=== PATIENT | female | born 1940 | race Caucasian/White ===

== ENCOUNTER 2023-08-25 16:12 | Emergency (ER) | payer MEDICARE, SELFPAY ==
[2023-08-25 16:18] VITALS: BP 178/98; PULSE 98; RESP 16; TEMP 36.7; O2SAT 92; BMI 23.3
--- NOTE | 2023-08-25 16:27 | PC.NURSE ---
pt states around 1530 she was eating some apple slices and one got stuck in her throat. she is not having any trouble breathing at this time, denies any resp distress. states she tried to make herself vomit but it didn't work.
--- NOTE | 2023-08-25 16:42 | XR_ITS ---
The [address] [address] Patient Name: LAURYN CAMEJO MRN: [id number] date: 1940 Sex: F Assigned Patient Location: ED.MAIN Current Patient Location: ER Accession/Order Number: [id number] Exam Date: 08/25/2023 16:35 Report Date: 08/25/2023 17:25 At the request of: DEMETRIO CR Procedure: XR soft tissue neck EXAM: XR soft tissue neck HISTORY: foreign body COMPARISON: None. TECHNIQUE: 2 views of soft tissue neck FINDINGS: The airway is patent. No definite radiographic foreign body is noted. Retropharyngeal space is normal. Severe degenerative changes of the cervical spine is appreciated. The soft tissue is unremarkable. XR/XR soft tissue neck IMPRESSION: No definite radiographic evidence of foreign body. Electronically authenticated by: DEEPIKA KHALIL Date: 08/25/2023 17:25
--- NOTE | 2023-08-25 16:42 | XR_ITS ---
The [place] [id number] Patient Name: LAURYN CAMEJO MRN: [id number] date: 1940 Sex: F Assigned Patient Location: ER Current Patient Location: ER Accession/Order Number: [id number] Exam Date: 08/25/2023 16:35 Report Date: 08/25/2023 17:28 At the request of: DEMETRIO CR Procedure: XR chest 2V EXAM: XR chest 2V HISTORY: foreign body COMPARISON: None. TECHNIQUE: Chest X-ray AP, 1 view FINDINGS: Support devices: None. Lungs/pleura: No effusion, or pneumothorax. Left lower lobe hazy opacity, likely representing atelectasis and/or consolidation. Heart and mediastinum: Normal contours. Bones: No acute abnormality identified. XR/XR chest 2V Impression: Left lower lobe hazy opacity, likely representing atelectasis and/or consolidation. Electronically authenticated by: DEEPIKA KHALIL Date: 08/25/2023 17:28
[2023-08-25 17:13] VITALS: O2SAT 95
--- NOTE | 2023-08-25 17:44 | ED_ITS ---
HPI - General Adult General Chief complaint: Neck Pain/Injury Stated complaint: APPLE IN THROAT Time Seen by Provider: 08/25/23 16:24 Source: patient Mode of arrival: walk-in Limitations: no limitations History of Present Illness HPI narrative: 83-year-old female presents to the emergency department with concern about esophageal foreign body. States she was eating an apple this afternoon when she felt like it became stuck in her throat. Complains of increased pain with swallowing. States she was drooling at first, it is no longer. Denies any shortness of breath, cough, fever. Quality: As above Severity: Mild Timing: As above, constant Context: Normal setting and activity Modifying factors: Pain worse with swallowing Associated symptoms: As above Related Data Home Medications Medication Instructions Recorded Confirmed No Known Home Medications 08/25/23 08/25/23 Allergies Allergy/AdvReac Type Severity Reaction Status Date / Time No Known Drug Allergies Allergy Verified 08/25/23 16:17 Review of Systems ROS Narrative Constitutional: Denies fever, chills, fatigue HENT: + difficulty, painful swallowing. Denies congestion, ear pain, rhinorrhea, sneezing, voice change Eyes: Denies discharge, eye redness Respiratory: Denies cough, shortness of breath Cardiovascular: Denies chest pain, palpitations PFSH PFSH Social History Smoking status: Never smoker Exam Narrative Exam Narrative: Vital signs noted Nurses notes reviewed CONST:? Nontoxic, well appearing, well nourished, in no distress.? HENT: normocephalic, atraumatic.? No nasal discharge.? Moist mucous membranes, no increased oropharyngeal erythema, edema, exudate.? No trismus, maintaining own secretions. EYES: No injection NECK: supple CV: normal rate, regular rhythm, no murmur RESP: normal effort, speaking in complete sentences. Lung sounds clear and equal bilat.? No wheezes, rales, rhonchi, stridor NEURO: A&Ox3 SKIN: intact, warm, dry, no pallor PSYCHIATRIC: normal mood, affect Constitutional Vital Signs, click to edit/add: Last Vital Signs Temp 98.0 F 08/25/23 16:18 Pulse 98 H 08/25/23 16:18 Resp 16 08/25/23 16:18 BP 178/98 H 08/25/23 16:18 Pulse Ox 95 08/25/23 17:13 O2 Del Method Room Air 08/25/23 16:18 Course Reevaluation(s) Reevaluation #1: On reevaluation, patient states that she is asymptomatic. Discussed with patient results, plan, and disposition. She is agreeable with plan Time: 17:44 Vital Signs Vital signs: Vital Signs Temperature 98.0 F 08/25/23 16:18 Pulse Rate 98 H 08/25/23 16:18 Respiratory Rate 16 08/25/23 16:18 Blood Pressure 178/98 H 08/25/23 16:18 Pulse Oximetry 92 L 08/25/23 16:18 Oxygen Delivery Method Room Air 08/25/23 16:18 Temperature 98.0 F 08/25/23 16:18 Pulse Rate 98 H 08/25/23 16:18 Respiratory Rate 16 08/25/23 16:18 Blood Pressure 178/98 H 08/25/23 16:18 Pulse Oximetry 95 08/25/23 17:13 Oxygen Delivery Method Room Air 08/25/23 16:18 Medical Decision Making MDM Narrative Medical decision making narrative: This is a pleasant 83-year-old female who presents to the emergency department with complaint of esophageal foreign body. States she was eating an apple when she felt like it became stuck. Has been having discomfort with swallowing since. Did have drooling initially, but this is since resolved. Denies cough, shortness of breath. On arrival, afebrile, vital signs are stable. On exam, nontoxic, well-appearing patient in no apparent distress. Patient speaking in complete sentences. Posterior oropharynx is clear. Heart regular rate and rhythm. Lung sounds clear and equal bilaterally, no stridor, wheezing noted. Patient was given some water prior to x-ray. While drinking it, she felt like the foreign body relieved itself and pain was resolved. Chest x-ray imaging, per radiologist reveals left lower lobe consolidation. Patient states she has had history of COVID-pneumonia in the past. However, no recent fever, cough, shortness of breath. Patient remained stable during ED course. Disposition ? The patient was discharged. Plan: Patient will be discharged to home. Condition at time of disposition: stable and improveed ? Advised to follow up with her provider. Advised to return for any worsening and/or development of new, concerning signs or symptoms PLEASE NOTE: Portions of the medical record may have been produced using electronic derrick boat runner and may contain errors with respect to translation of words which may not have been identified prior to finalization of the chart. Imaging Data Chest x-ray: Radiologist's impression: ITS Impressions Chest X-Ray 08/25/23 16:42 Impression: Left lower lobe hazy opacity, likely representing atelectasis and/or consolidation. Electronically authenticated by: DEEPIKA KHALIL Date: 08/25/2023 17:28 Soft Tissue Neck X-Ray 08/25/23 16:42 IMPRESSION: No definite radiographic evidence of foreign body. Electronically authenticated by: DEEPIKA KHALIL Date: 08/25/2023 17:25 Discharge Plan Discharge Chief Complaint: Neck Pain/Injury Clinical Impression: Pain in throat Esophageal foreign body Qualifiers: Encounter type: initial encounter Qualified Code(s): T18.108A - Unspecified foreign body in esophagus causing other injury, initial encounter Patient Disposition: Home, Self-Care Time of Disposition Decision: 17:46 Condition: Good Mode of Transportation: Private Vehicle Prescriptions / Home Meds: No Action No Known Home Medications Instructions: Esophageal Foreign Body (ED) Stand Alone Forms: Portal Instructions Referrals: MATTHEW MARLOW [Primary Care Provider] - 1 week
[2023-08-25 18:09] VITALS: BP 156/87; PULSE 75; O2SAT 99
== END 2023-08-25 18:10 | disposition home or self-care (01) ==
PROVIDERS: Emergency Provider Emergency Medicine; PCP Internal Medicine
DX: R07.0 Pain in throat (principal); T18.128A Food in esophagus causing other injury, initial encounter
CPT/HCPCS: 70360; 71046; 99284

== ENCOUNTER 2025-04-12 20:22 | Emergency (ER) | payer MEDICARE, SELFPAY ==
--- OUTSIDE RECORDS SUMMARY | 2025-04-04 09:30 | XMS_ITS | Encounter Summary ---
Author Organization [facility] tem Address [id number] [address] [place] [address] Care Team Providers Care Motor Driver Name Role Phone Krish Prince MD Primary Care Provider [phone] Reason for Visit * Reason Comments Medicare Annual Wellness Encounter Details Date Type Department Care Team (Late st Contact Info) Description 04/04/2025 9:30 AM EDT [facility] [address] [place] [address] [address] [place] [address] Krish Prince MD [address] [place] [address], [address] [place], [place] [id number] Routine general medical examination at a health care facility (Primary Dx) Social History Tobacco Use Types Packs/Day Years Used Date Smoking Tobacco: Never Smokeless Tobacco: Never Alcohol Use Standard Drinks/Week Comments Yes 0 (1 standard drink = 0.6 oz pur e alcohol) occassional Social Connection and Isolat ion Panel [NHANES] Answer Date Recorded In a typical week, how many times do you talk on the phone with family, friends, or neighbors? More than three times a week 04/26/2021 Frequency of Social Gatherin gs with Friends and Family Not on file 04/26/2021 How often do you attend chur ch or jain services? More than 4 times per year 04/26/2021 Do you belong to any clubs o r organizations such as mu-ism groups, unions, fraternal or athletic groups, or school groups? No 04/26/2021 How often do you attend meet ings of the clubs or organizations you belong to? Never 04/26/2021 Are you , , di vorced, , never , or living with a partner? 04/26/2021 AUDIT-C Answer Date Recorded Q1: How often do you have a drink containing alc ohol? Never 04/26/2021 Average Number of Drinks Not on file 021 Q3: How often do you have si x or more drinks on one occasion? Never 04/26/2021 PHQ-2 Answer Date Recorded Total Score 3 04/04/2025 [facility] - Occupational Stress Questionnaire Answer Date Recorded Do you feel stress - tense, restless, nervous, or anxious, or unable to sleep at night because your mind is troubled all the time - these days? To some extent 04/26/2021 Exercise Vital Sign Answer Date Recorde d On average, how many days pe r week do you engage in moderate to strenuous exercise (like a brisk walk)? 0 days 04/26/2021 On average, how many minutes do you engage in exercise at this level? 0 min 04/26/2021 PRAPARE - Transportation Answer Date Re corded In the past 12 months, has l ack of transportation kept you from medical appointments or from getting medications? No 03/31 In the past 12 months, has l ack of transportation kept you from meetings, work, or from getting things needed for daily living? No 04/26/2021 Childcare Answer Date Recorded Do problems getting child ca re make it difficult for you to work or study? No 04/26/2021 Employment Answer Date Recorded Do you need help finding a l ocal career center and/or a training program? No 04/26/2021 Hunger Screening Answer Date Recorded Within the past 12 months we worried whether our food would run out before we got money to buy more. Never True 04/04/2025 Within the past 12 months th e food we bought just didn't last and we didn't have money to get more. Never True 04/04/2025 Purpose - Life Answer Date Recorded I have a purpose and direction in my life. Agree 04/26/2021 Education Answer Date Recorded What is the highest level of school you have completed or the highest degree you have received? 12th grade 04/26/2021 Comments No Sex and Gender Information Value Date Recorded Sex Assigned at Not on file Legal Sex Female 11:34 AM EDT Gender Identity Not on file Sexual Orientation Not on file documented as of this encounter Last Filed Vital Signs Vital Sign Reading Time Taken Comments Blood Pressure 142/80 04/04/2025 9:34 AM EDT Pulse 76 04/04/2025 9:34 AM EDT Temperature 36.6 C (97.8 F) 04/04/2025 9:34 AM EDT Respiratory Rate - - Oxygen Saturation - - Inhaled Oxygen Concentration - - Weight 69.7 kg (153 lb 9.6 oz) 04/04/2025 9:34 A M EDT Height 153.7 cm (5' 0.51 ) 04/04/2025 9:34 AM ED T Body Mass Index 29.49 04/04/2025 9:34 AM EDT documented in this encounter Progress Notes * Krish Prince MD - 04/04/2025 9:30 AM EDT Subjective SUBJECTIVE: Patient ID: Lizette Juárez is a 84 y.o. female who presents for a Medicare Annual Wellness exam. Comes in for wellness. Remains independent in her home. She has no concerns. States that she feels well. The following portions of the patient's history were reviewed and updated as appropriate: allergies, current medications, past family history, past medical history, past social history, past surgicalhistory and problem list. AWV FLOWSHEET : Lifestyle Assessment Do you smoke or use smokeless tobacco?: No If you smoke or use smokeless tobacco, are you ready to quit?: NA Are you exposed to secondhand smoke?: No On average, how many drinks of alcohol do you consume in a week?: None Do you exercise for 30 or more minutes on average at least 3 days a week?: Often Do you have any tooth, denture, or oral problems?: No Do you snore or has anyone told you that you snore?: No Do you try to eat a balanced diet?: Yes Do you experience leakage of urine, also known as urinary incontinence?: Never Do you have difficulty bathing?: No Do you have difficulty dressing?: No Do you have difficulty grooming?: No Do you have difficulty eating?: No Do you have difficulty getting out of a chair?: No Do you have difficulty walking?: No Do you have difficulty using the toilet?: No Do you have difficulty doing laundry?: No Do you have difficulty with housekeeping?: No Do you have difficulty preparing a meal?: No Do you have difficulty shopping?: No Do you have difficulty using transportation?: No Do you have difficulty paying bills?: No Do you have difficulty managing finances?: No Fall Risk Fall Risk Assessment Completed?: Yes Have you fallen in the past year?: No Are you worried about falling?: (!) Yes Do you feel unsteady when standing or walking?: (!) Yes Risk Stratification: Moderate Risk Depression Screening Little interest or pleasure in doing things: Not at all Feeling down, depressed, or hopeless: Not at all Trouble falling or staying asleep, or sleeping too much: (!) More than half the days Feeling tired or having little energy: (!) Several days Poor appetite or overeating: Not at all Feeling bad about yourself - or that you are a failure or have let yourself or your family down: Not at all Trouble concentrating on things, such as reading the newspaper or watching television: Not at all Moving or speaking so slowly that other people could have noticed. Or the opposite - being so fidgety or restless that you have been moving around a lot more than usual: Not at all Thoughts that you would be better off , or of hurting yourself in some way: Not at all PEG Scale What number best describes your pain on average in the past week?: 1 What number best describes how, during the past week, pain has interfered with your enjoyment of life?: 0 - Does not interfere What number best describes how, during the past week, pain has interfered with your general activity?: 1 PEG Pain Total Score: 0.67 Safety Assessment Do you have throw rugs on the floor?: No Do you feel safe at your home?: Yes Do you feel unsteady when walking?: (!) Yes Are you having difficulty with driving?: No Do you have trouble seeing?: No Do you use a bath bar/seat?: No Do you use a raised toilet seat?: No Do you use a cane?: No Do you use a walker?: No Do you use a wheelchair?: No Hearing Assessment Do you strain or struggle to hear/understand conversations?: No Do you have trouble hearing the television or radio when others do not?: (!) Yes Does your family ever voice concerns about your hearing?: No Do you wear hearing aid/s?: No Personal Health During the past 4 weeks, how would you rate your overall health?: Good Do you understand how to take all of your medications?: Yes How confident are you that you can control and manage most of your health problems?: (!) I do not have any health problems In the past 12 months, how many times have you been hospitalized?: None End of Life Planning Do you have a living will?: Yes Do you have a durable power of ip attorney?: Yes Cognitive Screening Do you have trouble remembering or recalling facts or events?: No Do family members or caregivers report that you have difficulty remembering things?: No Clock Drawing Test: Normal REVIEW OF SYSTEMS: Review of Systems Constitutional: Negative for activity change and unexpected weight change. HENT: Negative for trouble swallowing and voice change. She isn't hearing very well but it does not really disrupt her daily function. Eyes: Negative for visual disturbance. Respiratory: Negative for cough and shortness of breath. Cardiovascular: Negative for chest pain and leg swelling. Gastrointestinal: Negative for abdominal pain and blood in stool. Genitourinary: Negative for dysuria and hematuria. Musculoskeletal: Some age-related aches and pains Neurological: Negative for dizziness, light-headedness and headaches. Psychiatric/Behavioral: Sometimes she does not sleep well at night because she has trouble shutting off her mind. Objective PHYSICAL EXAMINATION: Vitals: 04/04/25 0934 BP: 142/80 BP Site: Left Arm BP Postition: Sitting Pulse: 76 Temp: 36.6 ??C (97.8 ??F) TempSrc: Temporal Weight: 69.7 kg (153 lb 9.6 oz) Height: 153.7 cm (5' 0.51 ) Physical Exam Constitutional: Appearance: Normal appearance. Comments: Blood pressure acceptable HENT: Left Ear: Tympanic membrane and ear canal normal. Ears: Comments: Right ear is partially occluded with wax Nose: No congestion. Mouth/Throat: Pharynx: Oropharynx is clear. Eyes: General: No scleral icterus. Pupils: Pupils are equal, round, and reactive to light. Neck: Vascular: No carotid bruit. Comments: No thyroid enlargement or neck mass Cardiovascular: Rate and Rhythm: Normal rate and regular rhythm. Heart sounds: No murmur heard. Pulmonary: Effort: Pulmonary effort is normal. Breath sounds: Normal breath sounds. Abdominal: General: There is no distension. Palpations: Abdomen is soft. Tenderness: There is no abdominal tenderness. Musculoskeletal: Right lower leg: No edema. Left lower leg: No edema. Skin: Comments: No suspicious skin lesions Neurological: General: No focal deficit present. Mental Status: She is alert. Assessment/Plan ASSESSMENT/PLAN Medication reviewed. Labs from earlier this year reviewed. She declines mammogram and flu shot. Routine follow-up annually for wellness. Diagnoses and all orders for this visit: Routine general medical examination at a health care facility documented in this encounter Plan of Treatment Upcoming Encounters Date Type Department Care Team (Late st Contact Info) Description 04/05/2026 9:30 AM EDT Office Visit [facility] [address] [place] [address] [address] [place] [id number] Krish Prince MD [address] [place] [address], [address] [place] [address] documented as of this encounter Goals Goal Patient Goal Type Associated Problems Recent Progress Patient-Stated? Author Safe dc General Yes Cony Monreal LSW Note: Evaluation of progress towards goal: Safe dc transition pending clinical course and needs. documented as of this encounter Visit Diagnoses Diagnosis Routine general medical examination at a health care facility- Primary documented in this encounter Additional Health Concerns Assessment Noted Time PHQ-9 Depression Total Score: 3 04/04/20 25 9:26 AM EDT documented as of this encounter Care Teams Motor Driver Relationship Specialty Start Date End Date Krish Prince MD [address] [place] [address], [address] [place] [address] PCP - General Pediatrics 01/08/18 documented as of this encounter
[2025-04-12 20:27] VITALS: BP 158/82; PULSE 90; TEMP 36.7; O2SAT 95; BMI 27.4
--- OUTSIDE RECORDS SUMMARY | 2025-04-12 20:29 | XMS_ITS | CCD ---
Author Organization [facility] Inform ion Partnership [facility] Care Team Providers Care Wick Tender Name Role Phone MATTHEW MARLOW Referring Unavailable MATTHEW MARLOW Primary Care Unavailable MATTHEW MARLOW Attending Unavailable MATTHEW MARLOW Referring Unavailable MATTHEW MARLOW Primary Care Unavailable Problems Problem Classification Problem Date Documented Da te Episodic/Chronic Disorders of lipid metabolism (1 source) Mixed hyperlipidemia; Translations: [Mixed hyperlipidemia] Onset: 03-13-2021 Chronic Other nutritional; endocrine; and metabolic disorders (1 source) Hypercalcemia; Translations: [Hypercalcemia] Onset: 09-03-2024 Chronic Unclassified (1 source) Medicare Annual Wellness Onset: 04-04-2025 Results Test Name Value Interpretation Reference Range Facil ity COMPREHENSIVE METABOLIC PANE Will 09-03-2024 Albumin [Mass/Vol] 4.2 g/dL Normal 3.2-5.3 [facility] Comment on above: Performed By: #### Maame ORTIZ 31298-0 #### [facility] ([id number]) [address], [address] [place] [address] ALP [Catalytic activity/Vol] 124 U/L Normal 39-130 [facility] Comment on above: Performed By: #### Maame ORTIZ, 91160-6 #### [facility] ([id number]) [address], [address] [place] [address] ALT [Catalytic activity/Vol] 14 U/L Normal 0-31 [facility] Comment on above: Performed By: #### Maame ORTIZ, 14439-7 #### [facility] ([id number]) [address], [address] [place] [address] Anion gap [Moles/Vol] 9 mmol/L Normal 5-15 [facility] Comment on above: Performed By: #### Maame ORITZ, 54492-4 #### [facility] ([id number]) [address], [address] [place] [address] AST [Catalytic activity/Vol] 17 U/L Normal 0-41 [facility] Comment on above: Performed By: #### Maame ORTIZ, 30812-6 #### [facility] ([id number]) [address], [address] [place] [address] Bilirubin [Mass/Vol] 0.5 mg/dL Normal 0.3-1.2 [facility] Comment on above: Performed By: #### Maame ORTIZ, 01618-7 #### [facility] ([id number]) [address], [address] [place] [address] Calcium [Mass/Vol] 10.2 mg/dL Normal 8.5-10.5 [facility] Comment on above: Performed By: #### Maame ORTIZ, 91761-4 #### [facility] ([id number]) [address], [address] [place] [address] Chloride [Moles/Vol] 101 mmol/L Normal 98-109 [facility] Comment on above: Performed By: #### Maame ORTIZ, 47396-3 #### [facility] ([id number]) [address], [address] [place] [address] CO2 [Moles/Vol] 30 mmol/L Normal 22-32 [facility] Comment on above: Performed By: #### Maame ORTIZ, 96640-4 #### [facility] ([id number]) [address], [address] [place] [address] Creatinine [Mass/Vol] 0.97 mg/dL Normal 0.40-1.00 [facility] Comment on above: Result Comment: METH OD TRACEABLE TO IDMS STANDARD Performed By: #### Maame ORTIZ, 90731-8 #### [facility] ([id number]) [address], [address] [place] [address] GFR/1.73 sq M.predicted among non-blacks MDRD (S/P/Bld) [Vol rate/Area] 58 mL/min/{1.73_m2} Low >59 [facility] Comment on above: Result Comment: Reported eGFR is based on the CKD-EPI 2020 equation that does not use a race coefficient. Performed By: #### Maame ORTIZ 94703-2 #### [facility] ([id number]) [address], [address] [place] [address] Glucose [Mass/Vol] 100 mg/dL High 65-99 [facility] Comment on above: Performed By: #### Maame ORTIZ 44984-3 #### [facility] ([id number]) [address] [address] [place] [address] Potassium [Moles/Vol] 4.0 mmol/L Normal 3.5-5.0 [facility] Comment on above: Performed By: #### Maame ORTIZ 29082-5 #### [facility] ([id number]) [address], [address] [place] [address] Protein [Mass/Vol] 7.6 g/dL Normal 6.0-8.0 [facility] Comment on above: Performed By: #### Maame ORTIZ 04915-8 #### [facility] ([id number]) [address], [address] [place] [address] Sodium [Moles/Vol] 140 mmol/L Normal 134-146 [facility] Comment on above: Performed By: #### Maame ORTIZ 27880-5 #### [facility] ([id number]) [address], [address] [place] [address] Urea nitrogen [Mass/Vol] 20 mg/dL Normal 5-27 [facility] Comment on above: Performed By: #### Maame ORTIZ 92361-9 #### [facility] ([id number]) [address], [address] [place] [address] Lipid 1996 panelon 5 Cholesterol [Mass/Vol] 229 mg/dL High 150-200 [facility] Comment on above: Performed By: #### Maame ORTIZ, 30791-8 #### [facility] ([id number]) [address], [address] [place] [address] Cholesterol in HDL [Mass/Vol] 47 mg/dL Normal >39 [facility] Comment on above: Result Comment: HDL <40 mg/dL - High Risk HDL > or = 40mg/dL- Desirable HDL >60 mg/dL - Negative Risk Performed By: #### Maame ORTIZ, 97339-3 #### [facility] ([id number]) [address], [address] [place] [address] Cholesterol in LDL [Mass/Vol] 146 mg/dL High <130 [facility] Comment on above: Result Comment: LDL <100 mg/dL - Desirable LDL >160 mg/dL - High Risk Performed By: #### Maame ORTIZ, 46679-4 #### [facility] ([id number]) [address], [address] [place] [address] Cholesterol in VLDL [Mass/Vol] 36 mg/dL High 0-30 [facility] Comment on above: Performed By: #### Maame ORTIZ, 03075-2 #### [facility] ([id number]) [address], [address] [place] [address] CHOLESTEROL:HDL 4.9 Normal 1.0-5.0 [facility] Comment on above: Performed By: #### C , 61231-1 #### [facility] ([id number]) [address] [place] [address] Triglyceride [Mass/Vol] 179 mg/dL High 27-150 [facility] Comment on above: Performed By: #### C DIANA, 54709-4 #### [facility] ([id number]) [address] [place] [address] Encounters Encounter Date Encounter Type Care Provider Facility Start: 04-04-2025 End: 04-04-2025 ambulatory [facility] Start: 04-04-2025 Encounter for genera l adult medical examination without abnormal findings [facility] Start: 09-03-2024 End: 09-03-[address] [facility] Payers Date Payer Category Payer Medicare [id number] 1940 Unknown [id number] 1940 Unknown [id number] Summary Purpose Family History No Family History Records FoundNo Family History Records Found Advance Directives No Advanced Directives Records FoundNo Advanced Directives Records Found Additional Source Comments INFORMATION SOURCE (unrecogn ized section and content) DATE CREATED AUTHOR 09/05/2024 [facility] DATE CREATED AUTHOR AUTHOR'S ORGANIZ ATION 04/06/2025 [facility] FOR RECORDS PERTAINING TO PATIENTS WHO ARE OR HAVE BEEN ENROLLED IN A CHEMICAL DEPENDENCY/SUBSTANCEABUSE PROGRAM, SOME INFORMATION MAY BE OMITTED. This clinical summary was aggregated from multiple sources. Caution should be exercised in using it in the provision of clinical care. This summary normalizes information from multiple sources, and as a consequence, information in this document may materially change the coding, format and clinical context of patient data. In addition, data may be omitted in some cases. CLINICAL DECISIONS SHOULD BE BASED ON THE PRIMARY CLINICAL RECORDS. [facility] [employer] provides no warranty or guarantee of the accuracy or completeness of information in this document.
--- OUTSIDE RECORDS SUMMARY | 2025-04-12 20:30 | XMS_ITS | Clinical Summary ---
Author Organization [facility] Address [id number] [address] [place] [address] Care Team Providers Care Cath Laboratory Technician Name Role Phone Krish Prince MD Primary Care Provider [phone] Allergies No known active allergies Medications multivit-min/fe rrous fumarate (MULTI VITAMIN ORAL) Take by mouth in the morning. Active zinc gluconate 50 mg tablet Take 1 tablet (50 mg total) by mouth in the morning. Active cetirizine (ZyrTEC) 10 mg tablet Take 1 tablet (10 mg total) by mouth in the morning. Active albuterol (PROVENTIL HFA;VENTOLIN HFA) 90 mcg/actuation inhalerIndicati ons:Pneumonia due to COVID-19 virus Inhale 2 puffs every 6 (six) hours as needed for wheezing or shortness of breath. 18 g 1 Active omeprazole (PriLOSEC OTC) 20 mg EC tablet Take 1 tablet (20 mg total) by mouth as needed ( NEEDED FOR ALLERGIES). Active Active Problems Problem Noted Date Diagnosed Date Mixed hyperlipidemia 03/13/2021 GERD (gastroesophageal reflux disease) Resolved Problems Problem Noted Date Diagnosed Date Resolved Date Pneumonia due to COVID-19 virus 04/30/2021 04/04/2025 Encounters Date Type Department Care Team Description 04/04/2025 9:30 AM EDT Office Visit [facility] Internal [facility] [address] [facility] [address] [place] [address] Krish Prince MD Routine general medical examination at a health care facility (Primary Dx) 04/04/2025 Travel 01/10/2025 Refill [facility] [address] [place] [address] Paige Fonseca CNA Pneumonia due to COVID-19 virus from Last 3 Months Immunizations Immunization Administration Dates Next Due Influenza High Dose Preservative Free IM 020,03/31/2018 Influenza, High-dose, Quadrivalent 04/11/2021 Influenza, Injectable, quadrivalent (PF) 019 Pneumococcal Conjugate 13-Valent 03/31/2018 Family History Medical History Relation Name Comments Heart disease Brother No Known Problems Father Alzheimer's disease Mother Heart disease Sister Relation Name Status Comments Brother Father Mother Sister Social History Tobacco Use Types Packs/Day Years Used Date Smoking Tobacco: Never Smokeless Tobacco: Never Tobacco Cessation:Counseling Given: No Alcohol Use Standard Drinks/Week Comments Yes 0 [...] often do you attend chur ch or islam services? More than 4 times per year 04/26/2021 Do you belong to any clubs o r organizations such as yarsani groups, unions, fraternal or athletic groups, or [...] Average Number of Drinks Not on file Q3: How often do you have si x or more drinks on one occasion? Never 04/26/2021 PHQ-2 Answer Date Recorded Total Score 3 04/04/2025 [facility] of Occupat ional Health - Occupational Stress [...] Recorded Do you need help finding a [employer] career center and/or a training program? No [...] on file Sexual Orientation Not on file Last Filed Vital Signs Vital Sign Reading Time Taken Comments Blood Pressure 142/80 04/04/2025 9:34 AM EDT Pulse 76 04/04/2025 9:34 AM EDT Temperature 36.6 C (97.8 F) 04/04/2025 9:34 AM EDT Respiratory Rate 20 05/16/2021 8:41 AM EST Oxygen Saturation 94% 05/16/2021 7:13 AM EST Inhaled Oxygen Concentration - - Weight 69.7 kg (153 lb 9.6 oz) 04/04/2025 9:34 A M EDT Height 153.7 cm (5' 0.51 ) 04/04/2025 9:34 AM ED T Body Mass Index 29.49 04/04/2025 9:34 AM EDT Plan of Treatment Upcoming Encounters Date Type Department Care Team (Late st Contact Info) Description 04/05/2026 9:30 AM EDT Office Visit [facility] Internal Medicine/Pediatrics [address] [place] [address] [address] [place] [phone] Krish Prince MD [address] [place] [address], [address] [place] [address] Health Maintenance Due Date Last Done Comments DTaP,Tdap and Td Vaccines (1 - Tdap) 1959 Zoster (Shingles) Vaccine (2 of 2) 11/21/2017 09/26/2017 Influenza Vaccine 02/28/2025 04/11/2021, , 05/18/2019, Additional history exists Depression Screening 04/04/2026 04/04/2025 Fall Risk Screening 04/04/2026 04/04/2025 Medicare Annual Wellness Visit 04/04/2026 1 , 04/02/2024, 04/01/2023, Additional history exists Tobacco Screening 04/04/2026 04/04/2025 Goals Goal Patient Goal Type Associated Problems Recent Progress Patient-Stated? Author Safe dc General Yes Cony Monreal LSW Note: Evaluation of progress towards goal: Safe dc transition pending clinical course and needs. Medical Devices Implanted Type Area Whizzer Hand Device Identifier Shelf Expiration Date Model / Serial / Lot Adonis Iol 0d +23d Mod L Bicvx - [id number] - [id number] Implanted:Qty: 1 on 01/08/2018 by Maylin Abebe MD at [facility] Lens Left: Eye [employer] 05/29/2022 [id number] 23.0 / [id number] / NA Adonis 23.5 Bryon Rpl 77026 - [id number] - [id number] Implanted:Qty: 1 on 01/22/2018 by Maylin Abebe MD at [facility] Lens Right: Eye [employer] 06/29/2022 [id number] / [id number] / N/A Insurance A[employer] MEDICARE Advance Directives Documents on File Type Date Recorded Patient U.[employer]. Revenue Officer Expl anation Durable Power of Concept Artist 04/04/2025 9:28 AM DPOA 08/30/24 Advance Directive 04/01/2023 9:15 AM POA Living Will 04/01/2023 9:14 AM Living salvador l 02/12/11 * Full Code (Latest Code Status on File) Date Activated Date Inactivated Comments 04/30/2021 11:52 PM 05/16/2021 2:24 PM Care Teams Cath Laboratory Technician Relationship Specialty Start Date End Date Krish Prince MD [address] [place] [address], [address] [place], [place] [id number] PCP - General Pediatrics 01/08/18
--- OUTSIDE RECORDS SUMMARY | 2025-04-12 20:30 | XMS_ITS | Encounter Summary ---
Author Organization [facility] [employer] [facility] Address [facility] [id number] [address] [place] [address] Care Team Providers Care Orthodontic Technician Name Role Phone Krish Prince MD Primary Care Provider [phone] Encounter Details Date Type Department Care Team (Late st Contact Info) Description 12/17/2021 Telephone [facility] Internal Medicine[facility]Pediatrics [address] [place] [address] 1 [place] [address] Krish Prince MD [address] [place] [address], [address] [place] [address] Social History Tobacco Use Types Packs/Day Years [...] often do you attend chur ch or religion services? More than 4 times per year 04/26/2021 Do you belong to any clubs o r organizations such as druze groups, unions, fraternal or athletic groups, or [...] 04/26/2021 PHQ-2 Answer Date Recorded Total Score 7 04/26/2021 [facility] of Occupat ional Health [...] Recorded Do you need help finding a [facility] career center and/or a training program? No 04/26/2021 Purpose - Life Answer Date Recorded I [...] on file documented as of this encounter Miscellaneous Notes * Telephone Encounter - Nichol Quita - 12/17/2021 3:36 PM EDT Patient called, stated she hasn't used her oxygen in 2 months and would like it picked up. She saidshe is doing great. [facility] is who she used. Fax# [phone] * Telephone Encounter - Krish Prince MD - 12/17/2021 3:36 PM EDT OK to make a note that she no longer needs home oxygen and it can be discontinued. documented in this encounter Plan of Treatment Upcoming Encounters Date Type Department Care Team (Late st Contact Info) Description 04/05/2026 9:30 AM EDT Office Visit [facility] [address] [place] [address] [address] [place] [phone] Krish Prince MD [address] [place] [address], [address] [place], [place] [phone] documented as of this encounter Goals Goal Patient Goal Type Associated Problems Recent Progress Patient-Stated? Author Safe dc General Yes Cony Monreal LSW Note: Evaluation of progress towards goal: Safe dc transition pending clinical course and needs. documented as of this encounter Visit Diagnoses Not on filedocumented in this encounter Additional Health Concerns Assessment Noted Time PHQ-9 Depression Total Score: 7 04/26/20 21 1:31 PM EDT documented as of this encounter Care Teams Orthodontic Technician Relationship Specialty Start Date End Date Krish Prince MD [address] [place] [address], [address] [place] [address] PCP - General Pediatrics 01/08/18 documented as of this encounter
--- OUTSIDE RECORDS SUMMARY | 2025-04-12 20:30 | XMS_ITS | Encounter Summary ---
Author Organization [facility] [employer] Address [id number] [address] [place] [address] Care Team Prov[address] Care Place Change Roof Bolter Name Role Phone Krish Prince MD Primary Care Provider [phone] Encounter Details Date Type Department Care Team (Late st Contact Info) Description 05/17/2021 Telephone [facility] Internal Medicine/Pediatrics [address] [place] [address] 1 [place] [address] Krish Prince MD [address] [place] [address], [address] [place] [address] Social History Tobacco Use Types [...] often do you attend chur ch or jew services? More than 4 times per year 04/26/2021 Do you belong to any clubs o r organizations such as gnosticism groups, unions, fraternal or athletic groups, or [...] Answer Date Recorded Total Score 7 04/26/2021 [facility] of Occupat ional Health - Occupational Stress [...] Recorded Do you need help finding a [facility] career center and/or a training program? No [...] on file Sexual Orientation Not on file COVID-19 Exposure Response Date Recorded In the last month, have you been in contact with someone who was confirmed or suspected to have Coronavirus / COVID-19? No / Unsure 05/01/2021 12:39 AM EDT documented as of this encounter Miscellaneous Notes * Telephone Encounter - Maggie Marie - 05/17/2021 3:40 PM EST Transition of Care (*required) *Additional Questions/Concerns Requiring PCP Follow-Up: Not at this time. Daughter will call if anything come up. This documentation is being used for Transition of Care purposes: Yes Goal: Patient will demonstrate a safe transition Diagnosis on Discharge: Covid Pneumonia *Name of Discharging Facility: [facility] Date of Facility Discharge: 05/16/21 Date of Interactive Contact and Name of Mechanical Maintenance Engineer: 05/17/21 Candis che *Medication Review Completed: Yes Medication Reconciliation Questions/Concerns: *Follow Up Appointments with Providers: Primary: Krish Prince MD Specialty: Specialty: Specialty: Review of Pending Lab/Diagnostic Tests and Plan for Completion: yes Assessment and Support of Treatment Regimen Adherence and Medication Management: yes Education Provided by ACN to Support Self-Management, Independent Living and ADLs: yes Communication with Home Health Agencies and Other Services Utilized/Needed by the Patient: [facility] documented in this encounter Plan of Treatment Upcoming Encounters Date Type Department Care Team (Late st Contact Info) Description 04/05/2026 9:30 AM EDT Office Visit [facility] Medicine/Pediatrics [address] [place] [address] Krish Prince MD [address] [place] [address], [address] [place] [address] documented as of this encounter Goals Goal Patient Goal Type Associated Problems Recent Progress Patient-Stated? Author Safe dc General Yes Cony Monreal LSW Note: Evaluation of progress towards goal: Safe dc transition pending clinical course and needs. documented as of this encounter Visit Diagnoses Not on filedocumented in this encounter Additional Health Concerns Infection Onset Date Last Indicated Resolved Time COVID-19 Positive 04/30/2021 04/30/2021 05/21/2021 11:12 PM EST Assessment Noted Time PHQ-9 Depression Total Score: 7 04/26/20 21 1:31 PM EDT documented as of this encounter Care Teams Place Change Roof Bolter Relationship Specialty Start Date End Date Krish Prince MD [address] [place] [address], [address] [place] [address] PCP - General Pediatrics 01/08/18 documented as of this encounter
--- OUTSIDE RECORDS SUMMARY | 2025-04-12 20:30 | XMS_ITS | Encounter Summary ---
Author Organization [employer] Address [facility] [id number] [address] [place] [address] Care Team Providers Care Skid Adzer Name Role Phone Krish Prince MD Primary Care Provider [phone] Encounter Details Date Type Department Care Team (Latest Contact Info) Description 04/04/2025 Travel Social History Tobacco Use Types Packs/Day Years [...] 04/26/2021 How often do you attend chur or yazdanism services? More than 4 times per year 04/26/2021 Do you belong to any clubs o r organizations such as synagogue groups, unions, fraternal or athletic groups, or [...] Average Number of Drinks Not on file 10/28/2 021 Q3: How often do you have si x or more drinks on one occasion? Never 04/26/2021 PHQ-2 Answer Date Recorded Total Score 3 04/04/2025 [facility] of Occupat ional Health - Occupational Stress [...] Recorded Do you need help finding a [facility] career center and/or a training [...] on file documented as of this encounter Plan of Treatment Upcoming Encounters Date Type Department Care Team (Late st Contact Info) Description 04/05/2026 9:30 AM EDT Office Visit [facility] [address] [place] [address] Krish Prince MD [address] [place] [address], [address] [place] [address] documented as of this encounter [...] documented as of this encounter Care Teams Skid Adzer Relationship Specialty Start Date End Date Krish Prince MD [address] [place] [address], [address] [place] [address] PCP - General Pediatrics 01/08/18 documented as of this encounter
--- OUTSIDE RECORDS SUMMARY | 2025-04-12 20:30 | XMS_ITS | Encounter Summary ---
Author Organization [facility] Address [facility] [id number] [address] [place] [address] Care Team Providers Care Instrumentation Technician Name Role Phone Krish Prince MD Primary Care Provider [phone] Encounter Details Date Type Department Care Team (Late st Contact Info) Description 05/18/2021 Telephone [facility] [address] [facility] [address] [place] [phone] Lainey Edgar RMA Social History Tobacco Use Types Packs/Day Years [...] often do you attend chur ch or latter day services? More than 4 times per year 04/26/2021 Do you belong to any clubs o r organizations such as latter-day groups, unions, fraternal or athletic groups, or [...] Answer Date Recorded Total Score 7 04/26/2021 [facility] of Occupat ional Health - Occupational Stress [...] Recorded Do you need help finding a [facility] career center and/or a training program? [...] encounter Miscellaneous Notes * Telephone Encounter - JENNA Cerda - 05/18/2021 3:57 PM EST Annelise called with home health physical therapy stating the patient is needing a prescription for a 4 wheeled walker with a seat sent to [facility]. documented in this encounter Plan of Treatment Upcoming Encounters Date Type Department Care Team (Late st Contact Info) Description 04/05/2026 9:30 AM EDT Office Visit [facility] [address] [place] [address] [address] [place] [address] Krish Prince MD [address] [place] [address], [address] [place] [address] documented as of this encounter [...] documented as of this encounter Care Teams Instrumentation Technician Relationship Specialty Start Date End Date Krish Prince MD [address] [place] [address], [address] [place] [address] PCP - General Pediatrics 01/08/18 documented as of this encounter
--- OUTSIDE RECORDS SUMMARY | 2025-04-12 20:30 | XMS_ITS | Encounter Summary ---
Author Organization [facility] Sys tem Address [id number] [address] [place] [address] Care Team Providers Care Enroller Name Role Phone Krish Prince MD Primary Care Provider [phone] Encounter Details Date Type Department Care Team (Late st Contact Info) Description 08/27/2023 Orders Only [facility] [address] [facility] [address] [place] [id number] External, Scanning Provider Social History Tobacco Use Types Packs/Day Years [...] often do you attend chur ch or alevism services? More than 4 times per year 04/26/2021 Do you belong to any clubs o r organizations such as yazidi groups, unions, fraternal or athletic groups, or [...] 04/26/2021 PHQ-2 Answer Date Recorded Total Score 4 04/01/2023 [facility] Occupat ional [facility] - Occupational Stress Questionnaire Answer Date Recorded [...] Recorded Do you need help finding a [facility] career center and/or a training program? No 04/26/2021 Hunger Screening Answer Date Recorded Within the past 12 months we worried whether our food would run out before we got money to buy more. Never True 04/01/2023 Within the past 12 months th e food we bought just didn't last and we didn't have money to get more. Never True 04/01/2023 Purpose - Life Answer Date Recorded I [...] EDT Office Visit [facility] [address] [place] [address] [address] [place] [id number] Krish Prince MD [address] [place] [address], [address] [place] [address] documented as of this encounter Goals Goal Patient Goal Type Associated Problems Recent Progress Patient-Stated? Author Safe dc General Yes Cony Monreal LSW Note: Evaluation of progress towards goal: Safe dc transition pending clinical course and needs. documented as of this encounter Visit Diagnoses Not on filedocumented in this encounter Additional Health Concerns Assessment Noted Time PHQ-9 Depression Total Score: 4 04/01/20 23 9:00 AM EDT documented as of this encounter Care Teams Enroller Relationship Specialty Start Date End Date Krish Prince MD [address] [place] [address], [address] [place], [place] [id number] PCP - General Pediatrics 01/08/18 documented as of this encounter
--- NOTE | 2025-04-12 20:33 | ED_ITS ---
HPI - Neuro Symptoms/Deficit General Chief Complaint: Neuro Symptoms/Deficit Stated Complaint: DROOPING ON RIGHT SIDE Time Seen by Provider: 04/12/25 20:27 History of Present Illness HPI Narrative: healthy 84 year old only taking OTC medication prn. Around 9:30 this AM her daughter noticed right facial weakness. Patient was not aware of it. Her son now brings her in tonight to be seen. She does not have a headache or extremity weakness. No dizziness or visual complaint other than a sensation of buring around the right eye. Her tongue feels thick. No ear pain or fever Related Data Home Medications ?Medication ?Instructions ?Recorded ?Confirmed No Known Home Medications 08/25/2308/01 Allergies Allergy/AdvReac Type Severity Reaction Status Date / Time No Known Drug Allergies Allergy Verified 04/12/25 20:37 Review of Systems ROS Status of ROS 10 or more systems reviewed and unremark able except as noted in history and below PFSH PFS Social History Smoking status: Never smoker Little interest or pleasure in doing things: not at all Feeling down, depressed, or hopeless: not at all Exam Constitutional Vital Signs, click to edit/add: Last Vital Signs Temp 98.1 F 04/12/25 20:27 Pulse 90 04/12/25 20:27 Resp 14 04/12/25 20:27 BP 158/82 H 04/12/25 20:27 Pulse Ox 95 04/12/25 20:27 O2 Del Method Room Air 04/12/25 20:27 Common normals: no apparent distress, average body habitus, oriented x3, no limitations, healthy appearing, alert and well nourished [facility] Common normals: normocephalic and head/scalp atraumatic Other: mild right facial weakness compared to the left side Eye Common normals: PERRL, EOMs intact bilaterally and conjunctivae normal Respiratory Common normals: normal respiratory effort, no retractions, no use of accessory muscles and clear to auscultation bilaterally Cardio Common normals: regular rate, regular rhythm, S1 normal heart sound and S2 normal heart sound Extremity Common normals: normal to inspection and full ROM Neuro Common normals: oriented x3, moves all extremities and no sensory deficits noted Psych Appearance: grossly normal Course Vital Signs Vital signs: Vital Signs Temperature 98.1 F 10/14/25 20:27 Pulse Rate 90 04/12/25 20:27 Respiratory Rate 14 04/12/25 20:27 Blood Pressure 158/82 H 04/12/25 20:27 Pulse Oximetry 95 04/12/25 20:27 Oxygen Delivery Method Room Air 04/12/25 20:27 Temperature 98.1 F 04/12/25 20:27 Pulse Rate 90 04/12/25 20:27 Respiratory Rate 14 04/12/25 20:27 Blood Pressure 158/82 H 04/12/25 20:27 Pulse Oximetry 95 04/12/25 20:27 Oxygen Delivery Method Room Air 04/12/25 20:27 MDM - Neuro Symptoms/Deficit MDM Narrative Medical decision making narrative: patient presents with mild right facial droop present since this AM. no other neuro deficits. labs WNL and CT brain without contrast WNL. 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 given dose of prednisone and acyclovir and discharged home with a prescription of prednisone and valtrex Lab Data Labs: Lab Results 04/12/25 Range/Units 20:53 WBC 5.2 (4.0-11.0) 10^3/uL RBC 4.70 (4.20-5.40) 10^6/uL Hgb 14.4 (12.0-16.0) g/dL Hct 42.9 (36.0-48.0) % MCV 91.3 (81.0-99.0) fL MCH 30.6 (26.7-34.0) pg MCHC 33.6 (29.9-35.2) g/dL RDW 12.8 (11.0-15.0) % Plt Count 178 (150-450) 10^3/uL MPV 10.0 (9.5-13.5) fL Neut % (Auto) 53.7 (43.0-75.0) % Lymph % (Auto) 27.6 (20.5-60.0) % [place] % (Auto) 13.1 H (1.7-12.0) % Eos % (Auto) 4.0 (0.9-7.0) % Baso % (Auto) 1.2 (0.2-2.0) % Neut # (Auto) 2.8 (1.4-6.5) 10^3/uL Lymph # (Auto) 1.4 (1.2-3.8) 10^3/uL [place] # (Auto) 0.7 (0.3-0.8) 10^3/uL Eos # (Auto) 0.2 (0.0-0.7) 10^3/uL Baso # (Auto) 0.1 (0.0-0.1) 10^3/uL Abs Immat Gran (auto) 0.02 (0.00-0.03) 10^3/uL Imm/Tot Granulo (auto) 0.4 (0.0-0.5) % Sodium 142 (136-145) mmol/L Potassium 4.7 (3.5-5.1) mmol/L Chloride 105 (98-107) mmol/L Carbon Dioxide 29.4 (21.0-32.0) mmol/L Anion Gap 12.3 BUN 19.0 H (7.0-18.0) mg/dL Creatinine 0.82 (0.55-1.02) mg/dL Est GFR ( Amer) >60 (>=60 mL/min/1.73m^2) Est GFR (Non-Af Amer) >60 (>=60 mL/min/1.73m^2) BUN/Creatinine Ratio 23.2 Glucose 112 H (74-106) mg/dL Calcium 10.0 (8.5-10.1) mg/dL Troponin I High Sens 6.3 (4.0-51.3) pg/mL Discharge Plan Discharge Chief Complaint: Neuro Symptoms/Deficit Clinical Impression: Weir's palsy Patient Disposition: Home, Self-Care Prescriptions / Home Meds: No Action No Known Home Medications Print Language: Portuguese Instructions: Weir Palsy (ED) Additional Instructions: follow up with your doctor in next 2-3 days for recheck Referrals: MATTHEW MARLOW [Primary Care Provider, Family Practice] - 1 week
--- NOTE | 2025-04-12 20:33 | CT_ITS ---
The [address] [address] Patient Name: LAURYN CAMEJO MRN: [id number] date: 1940 Sex: F Assigned Patient Location: ED.MAIN Current Patient Location: ED.MAIN Accession/Order Number: [id number] Exam Date: 04/12/2025 20:50 Report Date: 04/12/2025 21:14 At the request of: SANA BROWN MD Procedure: CT stroke head/brain wo con CT stroke head/brain wo con 04/12/2025 8:56 PM SIGNS AND SYMPTOMS: ^right facial droop TECHNIQUE:Multi-detector CT axial slices of the brain were obtained without IV contrast. CT was performed with one or more of the following dose reduction techniques: Automated exposure control, adjustment of the mA and/or kV according to patient size, or use of iterative reconstruction technique. COMPARISON: None. FINDINGS: There is no shift of the midline structures, acute intracranial bleeding, mass effects, or evidence of acute ischemia. There is age-related cortical atrophy. This periventricular white matter hypoattenuation. Atherosclerotic changes are noted in the intracranial segments of the internal carotid arteries. The ventricular system is normal in size. The brainstem and the cerebellum are unremarkable. The visualized intraorbital contents, the visualized paranasal sinuses, and the infratemporal soft tissues show no acute abnormality. The osseous structures in the skull base and the calvarium show no abnormality. CT/CT stroke head/brain wo con IMPRESSION: No acute intracranial pathology. Chronic age-related neurodegenerative changes are noted as above. Impression dictated by: Alexis Sutton M.D. 04/12/2025 9:14 PM Dictation Location: [employer] Electronically authenticated by: [id number] Y Date: 04/12/2025 21:14
[2025-04-12 21:05] LABS: Hematocrit 42.9 % (36.0-48.0); Hemoglobin 14.4 g/dL (12.0-16.0); Immature Granulocytes Abs Auto 0.02 10^3/uL (0.00-0.03); Immature Granulocytes Pct Auto 0.4 % (0.0-0.5); Lymphocytes Absolute Auto 1.4 10^3/uL (1.2-3.8); Mean Corpuscular HGB Conc 33.6 g/dL (29.9-35.2); Mean Corpuscular Hemoglobin 30.6 pg (26.7-34.0); Mean Corpuscular Volume 91.3 fL (81.0-99.0); Platelet Count 178 10^3/uL (150-450); Red Blood Count 4.70 10^6/uL (4.20-5.40); White Blood Count 5.2 10^3/uL (4.0-11.0)
[2025-04-12 21:21] LABS: Anion Gap 12.3; Blood Urea Nitrogen 19.0 mg/dL (7.0-18.0); Calcium 10.0 mg/dL (8.5-10.1); Carbon Dioxide 29.4 mmol/L (21.0-32.0); Chloride 105 mmol/L (98-107); Estimated GFR (African America >60 (>=60 mL/min/1.73m^2); Estimated GFR (Non-African Ame >60 (>=60 mL/min/1.73m^2); Glucose 112 mg/dL (74-106); Sodium 142 mmol/L (136-145)
[2025-04-12 21:24] LABS: Potassium 4.7 mmol/L (3.5-5.1)
[2025-04-12] MEDS: ACYCLOVIR 200 MG CAPSULE 400 MG PO (22:01)
[2025-04-12] MEDS: PREDNISONE 20 MG TABLET 60 MG PO (22:02)
[2025-04-12 22:07] VITALS: BP 152/86; PULSE 76; O2SAT 96
== END 2025-04-12 22:09 | disposition home or self-care (01) ==
PROVIDERS: Emergency Provider Internal Medicine; PCP Internal Medicine
DX: G51.0 Bell's palsy (principal)
CPT/HCPCS: 36415; 70450; 80048; 84484; 85025; 99284; J7512